=== PATIENT | female | born 1965 | race Caucasian/White ===

== ENCOUNTER → 2017-02-12 | Outpatient (CLI) | payer OTHER ==
[2017-02-12 08:42] LABS: HEMOGLOBIN 14.3 g/dL (11.7-16.4); WHITE BLOOD COUNT 6.2 x10^3/uL (3.4-10)
[2017-02-12 08:51] LABS: BLOOD UREA NITROGEN 12 mg/dL (7-18)
[2017-02-12 09:00] LABS: ASPARTATE AMINO TRANSFERASE 33 U/L (15-37)
== END | disposition home or self-care (01) ==
LOC: LAB 08:24
PROVIDERS: ATTEND Nurse Practitioner Women's Health
DX: Z30.41 Encounter for surveillance of contraceptive pills (principal); E66.3 Overweight; E78.5 Hyperlipidemia, unspecified; E55.9 Vitamin D deficiency, unspecified
CPT/HCPCS: 36415; 80053; 80061; 82306; 83001; 84436; 84443; 84480; 84481; 85025

== ENCOUNTER → 2018-03-11 | Outpatient (CLI) | payer OTHER | END | disposition home or self-care (01) | LOC: LAB 11:09 | PROVIDERS: ATTEND Nurse Practitioner Women's Health | DX: Z78.0 Asymptomatic menopausal state (principal) | CPT/HCPCS: 36415; 83001 ==

== ENCOUNTER → 2018-04-04 | Outpatient (CLI) | payer OTHER | END | disposition home or self-care (01) | LOC: RAD 13:31 | PROVIDERS: ATTEND Orthopaedic Surgery | DX: S83.411A Sprain of medial collateral ligament of right knee, initial encounter (principal); R60.0 Localized edema; X58.XXXA Exposure to other specified factors, initial encounter; Y93.89 Activity, other specified; Y92.89 Other specified places as the place of occurrence of the external cause; Y99.8 Other external cause status ==

== ENCOUNTER → 2018-06-03 | Outpatient (CLI) | payer OTHER | END | disposition home or self-care (01) | LOC: LAB 13:04 | PROVIDERS: ATTEND Nurse Practitioner Women's Health | DX: Z30.41 Encounter for surveillance of contraceptive pills (principal) | CPT/HCPCS: 36415; 83001 ==

== ENCOUNTER → 2018-07-29 | Outpatient (CLI) | payer OTHER | END | disposition home or self-care (01) | LOC: LAB 11:20 | PROVIDERS: ATTEND Nurse Practitioner Women's Health | DX: Z30.41 Encounter for surveillance of contraceptive pills (principal) | CPT/HCPCS: 36415; 83001 ==

== ENCOUNTER 2019-03-23 09:18 | Outpatient (CLI) | payer OTHER | END 2019-03-23 23:59 | disposition home or self-care (01) | LOC: CFH 09:18 | PROVIDERS: ATTEND Nurse Practitioner Women's Health | DX: Z12.31 Encounter for screening mammogram for malignant neoplasm of breast (principal) | CPT/HCPCS: 77063; 77067 ==